=== PATIENT | male | born 1970 | race Caucasian/White ===

== ENCOUNTER → 2024-08-25 14:35 | Outpatient (REF) | payer BC, SELFPAY | LOC: RCS 14:35 | PROVIDERS: ATTENDING PHYSICIAN Nuclear Medicine Nuclear Cardiology | DX: I25.10 Atherosclerotic heart disease of native coronary artery without angina pectoris (principal) | CPT/HCPCS: 93306; Q9950 ==

== ENCOUNTER → 2024-10-19 11:04 | Outpatient (REF) | payer BC, SELFPAY | LOC: HWRCS 11:04 | PROVIDERS: ATTENDING PHYSICIAN Nuclear Medicine Nuclear Cardiology; FAMILY PHYSICIAN Nurse Practitioner Primary Care | DX: I25.5 Ischemic cardiomyopathy (principal); I25.10 Atherosclerotic heart disease of native coronary artery without angina pectoris; E78.5 Hyperlipidemia, unspecified; R73.09 Other abnormal glucose | CPT/HCPCS: 78452; 93017; A9500; J2785 ==